=== PATIENT | female | born 1995 | race Caucasian/White ===

== ENCOUNTER 2019-11-18 11:01 | Emergency (ER) | payer OTHER, SELFPAY ==
[2019-11-18 11:04] VITALS: BP 138/95; PULSE 90; RESP 16; TEMP 37.1; O2SAT 96
--- NOTE | 2019-11-18 11:37 | ED.ABDPAIN ---
HPI - Abdominal Pain General Chief Complaint: Eye Problems <Rui Saucedo PA-C - Last Filed: 11/18/19 11:52> Stated Complaint: cat litter in eyes <Rui Saucedo PA-C - Last Filed: 11/18/19 11:52> Time Seen by Provider: 11/18/19 11:04 <Rui Saucedo PA-C - Last Filed: 11/18/19 11:52> Source: patient <GLORY Cano Last Filed: 11/18/19 11:52> Mode of arrival: ambulatory <Rui Saucedo PA-C - Last Filed: 11/18/19 11:52> Limitations: no limitations <Rui Saucedo PA-C - Last Filed: 11/18/19 11:52> History of Present Illness HPI narrative: Patient is a 24-year-old female who presents to emergency department for evaluation of injury to the left eye patient was getting down some cat litter when it fell onto the eyes patient was able to irrigate her eyes out but notes that she continues to have some mild irritation of the left eye denies any visual changes or other complaints and on arrival is otherwise resting comfortably in the room in no distress patient notes that her tetanus was last updated in high school. Patient denies recent illness <Rui Saucedo PA-C - Last Filed: 11/18/19 11:52> Related Data Allergies/Adverse Reactions: Allergies Allergy/AdvReac Type Severity Reaction Status Date / Time No Known Allergies Allergy Verified 11/18/19 11:12 <Rui Saucedo PA-C - Last Filed: 11/18/19 11:52> Review of Systems Review of Systems: All systems reviewed & are unremarkable except as noted in HPI and below <Rui Saucedo PA-C - Last Filed: 11/18/19 11:52> PMFSH Surgical History Surgical History: Surgical History (Updated 11/18/19 @ 11:40 by Rui Saucedo PA-C) H/O blepharoplasty <Rui Saucedo PA-C - Last Filed: 11/18/19 11:52> Social History Social History: Social History (Updated 11/18/19 @ 11:40 by Rui Saucedo PA-C) Smoking status: Current every day smoker <GLORY Cano Last Filed: 11/18/19 11:52> Exam Narrative: Exam Narrative: GENERAL: Well-appearing, well-nourished, and in no acute distress. HEAD: Normocephalic, atraumatic. EYES: PERRLA and EOMI. minimal conjunctival injection of the left eye no foreign bodies noted. Eyelids everted and unremarkable. Negative for fluorescein uptake ENT: Nares clear, no rhinorrhea or epistaxis. Mucous membranes moist. Oropharynx without tonsillar hypertrophy exudate or other lesions. . EXTREMITIES: Normal range of motion. No edema. SKIN: Warm, dry, no rash. NEURO: No focal deficits. Alert and oriented x3. PSYCH: Normal mood and affect. <Rui Saucedo PA-C - Last Filed: 11/18/19 11:52> Course Vital Signs Vital signs: Vital Signs Temperature 37.1 C 11/18/19 11:04 Pulse Rate 90 11/18/19 11:04 Respiratory Rate 16 11/18/19 11:04 Blood Pressure 138/95 H 11/18/19 11:04 Pulse Oximetry 96 11/18/19 11:04 Temperature 37.1 C 11/18/19 11:04 Pulse Rate 90 11/18/19 11:04 Respiratory Rate 16 11/18/19 11:04 Blood Pressure 138/95 H 11/18/19 11:04 Pulse Oximetry 96 11/18/19 11:04 <Rui Saucedo PA-C - Last Filed: 11/18/19 11:52> Vital Signs Temperature 37.1 C 11/18/19 11:04 Pulse Rate 90 11/18/19 11:04 Respiratory Rate 16 11/18/19 11:04 Blood Pressure 138/95 H 11/18/19 11:04 Pulse Oximetry 96 11/18/19 11:04 Temperature 37.1 C 11/18/19 11:04 Pulse Rate 90 11/18/19 11:04 Respiratory Rate 16 11/18/19 11:04 Blood Pressure 138/95 H 11/18/19 11:04 Pulse Oximetry 96 11/18/19 11:04 <Nancy Brown MD - Last Filed: 11/18/19 12:34> MDM - Abdominal Pain MDM Narrative Medical decision making narrative: Patient in the room with no foreign bodies or abrasions seen felt appropriate for outpatient reevaluation provided with reasons to return. <Rui Saucedo PA-C - Last Filed: 11/18/19 11:52> Discharge Plan Discharge Clinical Impression: Foreign b
[2019-11-18] MEDS: TETANUS,DIPHTHERIA,AC PERTUSSIS ADULT (0.5 ML) BOOSTRIX IM (11:46)
[2019-11-18] MEDS: TETRACAINE HCL 0.5% OPHTH SOLN 4 ML BTL 1 DROP (11:48)
[2019-11-18] MEDS: FLUORESCEIN SOD 1 MG/STRIP (11:48)
[2019-11-18] MEDS: DACRIOSE EYE IRRIGATION 118 ML BOTTLE (11:48)
== END 2019-11-18 12:00 | disposition home or self-care (01) ==
PROVIDERS: Emergency Provider Emergency Medicine; PCP Family Medicine
DX: T15.92XA Foreign body on external eye, part unspecified, left eye, initial encounter (principal); Z23 Encounter for immunization; F17.200 Nicotine dependence, unspecified, uncomplicated
CPT/HCPCS: 90471; 90715; 99283; A9270

== ENCOUNTER → 2021-12-27 13:30 | Outpatient (CLI) | payer BC, SELFPAY ==
--- NOTE | ~2021-12-27 | XR_ITS ---
EXAM: XR foot RT min 3V DATE: 12/27/2021 13:44 HISTORY: FOLLOW UP FX 5TH METATARSAL . COMPARISON: None available. FINDINGS: Normal mineralization. Transverse fracture of the proximal right fifth metatarsal extendin g to the intermetatarsal joint. No lytic or blastic lesion. Joint spaces are maintained. No erosion o r periosteal change. Soft tissues within normal limits. IMPRESSION: Nondisplaced transverse fracture of the proximal right fifth metatarsal (Blackburn type fract ure). Reviewed, dictated and finalized at location K. IMPRESSION: Nondisplaced transverse fracture of the proximal right fifth metata rsal (Blackburn type fracture).
== END ==
PROVIDERS: PCP Family Medicine; Visit Provider Podiatrist Foot & Ankle Surgery
DX: S92.351A Displaced fracture of fifth metatarsal bone, right foot, initial encounter for closed fracture (principal); X58.XXXA Exposure to other specified factors, initial encounter
CPT/HCPCS: 73630

== ENCOUNTER → 2022-01-24 14:03 | Outpatient (CLI) | payer BC, SELFPAY ==
--- NOTE | ~2022-01-24 | XR_ITS ---
XR foot RT min 3V DATE: 01/24/2022 14:30 INDICATION: Right metatarsal fracture TECHNIQUE: 3 views COMPARISON: 12/27/2021 right foot FINDINGS: Nondisplaced fracture of the base of the fifth metatarsal bone is again noted, without sign ificant change in position or alignment since 12/27/2021. The fracture line appears mildly less lucent since 12/27/2021, consistent with healing. No other fracture or dislocation or other significant bony abnormality. IMPRESSION: Healing nondisplaced fracture of base of fifth metatarsal bone Reviewed, dictated and finalized at location B.
== END ==
PROVIDERS: PCP Family Medicine; Visit Provider Podiatrist Foot & Ankle Surgery
DX: S92.301D Fracture of unspecified metatarsal bone(s), right foot, subsequent encounter for fracture with routine healing (principal); X58.XXXD Exposure to other specified factors, subsequent encounter
CPT/HCPCS: 73630

== ENCOUNTER → 2022-02-22 13:54 | Outpatient (CLI) | payer BC, SELFPAY ==
--- NOTE | ~2022-02-22 | XR_ITS ---
EXAMINATION: XR foot RT min 3V DATE: 02/22/2022 14:11 INDICATION: Right fifth metatarsal fracture follow-up TECHNIQUE: Dorsoplantar, lateral, and 2 oblique views of the right foot were obtained. COMPARISON: 01/24/2022, 12/27/2021 FINDINGS: There is near complete interval healing of the previously described fracture at the lateral base of the fifth metatarsal. No additional fracture is identified. The joint spaces are normal. The soft tissues are unremarkable. IMPRESSION: 1. Fracture at the lateral base of the fifth metatarsal with routine healing. Reviewed, dictated and finalized at location A.
== END ==
PROVIDERS: PCP Family Medicine; Visit Provider Podiatrist Foot & Ankle Surgery
DX: S92.301A Fracture of unspecified metatarsal bone(s), right foot, initial encounter for closed fracture (principal); X58.XXXA Exposure to other specified factors, initial encounter
CPT/HCPCS: 73630

== ENCOUNTER 2023-05-25 11:47 | Emergency (ER) | payer SELFPAY ==
[2023-05-25 11:57] VITALS: BP 140/76; PULSE 92; RESP 18; TEMP 36.9; O2SAT 98
--- NOTE | 2023-05-25 12:31 | ED.URI ---
HPI - URI/Sore Throat General Chief Complaint: Upper Respiratory Infection Stated Complaint: Cough,Sore Throat Time Seen by Provider: 05/25/23 12:12 Source: patient and RN notes reviewed Mode of arrival: ambulatory Limitations: no limitations History of Present Illness HPI Narrative: Patient presents today with a 3 day history of cough, sore throat, fever, rhinorrhea, and nasal congestion. She has been taking Tylenol and ibuprofen with mild relief. She is currently pain-free, but this increases with swallowing. Related Data Home Medications Medication Instructions Recorded Confirmed paroxetine HCl 20 mg tablet 20 mg PO DAILY 05/25/23 05/25/23 Allergies Allergy/AdvReac Type Severity Reaction Status Date / Time No Known Allergies Allergy Verified 05/25/23 11:56 Review of Systems Review of Systems: CONSTITUTIONAL: Denies body aches, chills, or sweats.+ fever EYES: Denies visual changes, redness, or discharge. ENT: + rhinorrhea, congestion, sore CARDIOVASCULAR: Denies chest pain, palpitations, or edema. RESPIRATORY: Denies dyspnea.+ cough GASTROINTESTINAL: Denies abdominal pain, nausea, vomiting, or diarrhea. GENITOURINARY: Denies dysuria or hematuria. SKIN: Denies rash, itching, or wounds. MUSCULOSKELETAL: Denies back pain, joint pain, or myalgia. NEUROLOGIC: Denies headache, numbness, tingling, or weakness. PSYCH: Denies depression or anxiety. [facility] Surgical History Surgical History H/O blepharoplasty Social History Social History Smoking status: Current every day smoker Comments At time of signature, I have reviewed and agree with nursing past medical, surgical, social and family history unless otherwise noted. Please see nursing chart for further information. There is no relevant family history pertinent to the presenting complaint Exam Narrative: GENERAL: Mildly ill-appearing, well-nourished, and in no acute distress. HEAD: Normocephalic, atraumatic. EYES: EOMI. No redness or drainage. Conjunctivae normal. ENT: Mucous membranes pink and moist. Nares congested with rhinorrhea. TMs normal bilaterally. Throat erythematous with mild edema. Uvula midline. NECK: Normal AROM. Supple. Bilateral tonsillar lymphadenopathy. CHEST: No respiratory distress. Clear to auscultation. HEART: Regular rate and rhythm. No murmur appreciated. EXTREMITIES: Normal range of motion. No edema. SKIN: Warm, dry, no rash. Capillary refill normal. Normal skin turgor. NEURO: No focal deficits. Alert and oriented x3. Gait steady. PSYCH: Normal affect. No signs of depression or anxiety. Course Course Level of Care: Express Care Visit Vital Signs Vital signs: Vital Signs Temperature 98.5 F 05/25/23 11:57 Pulse Rate 92 05/25/23 11:57 Respiratory Rate 18 05/25/23 11:57 Blood Pressure 140/76 05/25/23 11:57 Pulse Oximetry 98 05/25/23 11:57 Oxygen Delivery Room Air 05/25/23 11:57 Temperature 98.5 F 05/25/23 11:57 Pulse Rate 92 05/25/23 11:57 Respiratory Rate 18 05/25/23 11:57 Blood Pressure 140/76 05/25/23 11:57 Pulse Oximetry 98 05/25/23 11:57 Oxygen Delivery Room Air 05/25/23 11:57 Reviewed MDM - URI/Sore Throat MDM Narrative Medical decision making narrative: Rapid strep negative. Culture pending. Declines swabbing for influenza or COVID-19. Discussed [id number] treatment and when to go to the ER. No prescription medications indicated at this time. Anticipatory guidance given. Differential Diagnosis Differential diagnosis: Likely upper respiratory infection, sinusitis, viral infection, pharyngitis and other (Strep throat) Lab Data Attestation: I reviewed the patient's lab results. Labs: Strep Screen Presumptive Negative *(Reference Range: Negative)* Critical
== END 2023-05-25 12:36 | disposition home or self-care (01) ==
PROVIDERS: Emergency Provider Nurse Practitioner; PCP Family Medicine
DX: J06.9 Acute upper respiratory infection, unspecified (principal)
CPT/HCPCS: 87081; 87880; 99213; G0463

== ENCOUNTER 2024-11-14 11:07 | Emergency (ER) | payer OTHER, SELFPAY ==
--- NOTE | ~2024-11-14 | XR_ITS ---
EXAMINATION: XR ankle LT min 3V DATE: 11/14/2024 11:22 INDICATION: Hyperextension injury to the left ankle TECHNIQUE: Anteroposterior, oblique, mortise, and lateral views of the left ankle were obtained. COMPARISON: None. FINDINGS: Alignment is normal. No fracture. Joint spaces are well maintained. No ankle joint effusion. The so ft tissues are unremarkable. IMPRESSION: 1. Negative left ankle radiographs. Reviewed, dictated and finalized at location A.
--- NOTE | 2024-11-14 11:08 | ED_ITS ---
HPI - Extremity Injury (Lower) General Chief Complaint: Extremity Injury, Lower Stated Complaint: ankle injury Time Seen by Provider: 11/14/24 11:14 Source: patient, RN notes reviewed and old records reviewed Mode of arrival: ambulatory Limitations: no limitations History of Present Illness HPI Narrative: 29-year-old female presents to the [facility] with left ankle pain. Patient states that she flexed the ankle while dirt biking. Pain generalized ankle. Mild swelling noted Has taken Tylenol a Motrin Injury occurred yesterday Related Data Home Medications ?Medication ?Instructions ?Recorded ?Confirmed ?Last Taken ?Type bupropion HCl 150 mg 24 hr tablet, mg PO 11/14/24 Unknown History extended release cariprazine 1.5 mg capsule mg 11/14/24 Unknown History (Vraylar) levothyroxine 50 mcg tablet mcg 11/14/24 Unknown History sertraline 50 mg tablet mg 11/14/24 Unknown History Allergies Allergy/AdvReac Type Severity Reaction Status Date / Time No Known Allergies Allergy Verified 11/14/24 11:27 Review of Systems Review of Systems: All systems reviewed & are unremarkable except as noted in HPI and below Constitutional: Constitutional: Reports no additional constitutional complaints ENT: Reports system reviewed and no additional complaints, except as documented Cardiovascular: Cardiovascular: Reports no additional cardiovascular complaints, Denies chest pain and Denies dyspnea Respiratory: Respiratory: Reports no additional respiratory complaints, Denies chest congestion, Denies cough and Denies dyspnea Musculoskeletal: Musculoskeletal: Reports as per HPI, Reports arthralgias and Reports joint swelling Integumentary/Breasts: Skin/Breast: Reports system reviewed and no additional complaints, except as docu PMFSH Surgical History Surgical History H/O blepharoplasty Social History Social History Smoking status: Current every day smoker Comments At the time of my signature, I reviewed and agree with the nursing past medical, surgical, social, and family history. There is no relevant family history pertinent to the patient complaint. Exam Const: General: cooperative, healthy appearing, comfortable, no acute distress, well developed, alert and well nourished Nutritional Appearance: well nourished Orientation/consciousness: patient oriented x3 Limitations: no limitations HENMT: Head: normal to inspection Eyes: General: appearance normal, both eyes and all related structures Alignment and Position: alignment normal Neck: Neck: normal visual inspection, full ROM, no lymphadenopathy and no meningeal signs Chest: Chest palpation & inspection: normal inspection of the chest Resp: Effort & Inspection: normal respiratory effort and able to speak in complete sentences Cardio: Rate: regular rate Skin: General skin exam: normal color and no rashes or lesions noted Neuro: General: patient oriented x3, moves all extremities and no meningeal signs Cognition (Neuro): normal cognition Speech: normal speech Extrem: General: normal to inspection, full ROM, capillary refill normal and normal gait Left lower extremity: ankle Details: tenderness Location: of the lateral malleolus, swelling Details: laterally and anteriorly and normal ROM and foot Details: normal capillary refill, toes with normal ROM, vascular exam Details: dorsalis pedis pulse present and normal capillary refill and motor- sensory exam light-touch normal Psych: Appearance: grossly normal and well kempt Mental Status: mental status grossly normal Speech and movement: Normal speech and movement present and Clear speech present Affect: normal affect Attitude: cooperative Course Course Level of Care: Express Care Visit Vital Signs Vital signs: Vital Signs Temperature 97.4 F L 11/14/24 11:17 Pulse Rate 64 11/14/24 11:17 Respiratory Rate 18 11/14/24 11:17 Blood Pressure 117/66 11/14/24 11:17 Pulse Oximetry 100 11/14/24 11:17 Oxygen Delivery Room Air 11/14/24 11:17 Temperature 97.4 F L 11/14/24 11:17 Pulse Rate 64 11/14/24 11:17 Respiratory Rate 18 11/14/24 11:17 Blood Pressure 117/66 11/14/24 11:17 Pulse Oximetry 100 11/14/24 11:17 Oxygen Delivery Room Air 11/14/24 11:17 Reviewed MDM - Extremity Injury (Lower) MDM Narrative Medical decision making narrative: Patient sitting in exam room. Patient is nontoxic, vitals are stable. X-ray negative for ankle fracture exam most consistent with ankle sprain, strain Patient appropriate for outpatient treatment with close follow-up Discharge instructions reviewed with patient, as well as provided in writing per nursing staff. The instructions also include specific and strict return/GO TO THE ER as well as f/u information. All questions have been answered, and the patient deny any further questions with discharge and discharge plan. Some parts of this dictation were generated by voice recognition software and may contain typographical and/or grammatical inaccuracies. Differential Diagnosis Differential diagnosis: Likely ankle sprain and strain and ankle fracture Imaging Data Radiologist's impression: EXAMINATION: XR ankle LT min 3V DATE: 11/14/2024 11:22 INDICATION: Hyperextension injury to the left ankle TECHNIQUE: Anteroposterior, oblique, mortise, and lateral views of the left ankle were obtained. COMPARISON: None. FINDINGS: Alignment is normal. No fracture. Joint spaces are well maintained. No ankle joint effusion. The soft tissues are unremarkable. IMPRESSION: 1. Negative left ankle radiographs. Critical Care Time Critical Care Time Critical Care Time: No Discharge Plan Discharge Clinical Impression: Left ankle sprain Patient Disposition: Home Condition: Stable Instructions: Ankle Sprain (ED) Additional Instructions: Your Xray did not show a fracture. Wear good supportive shoes at all times. Ice should be applied to help reduce swelling. It can be used for 20 to 30 minutes, every 2-3 hours while awake. Do not apply ice directly to your skin. ankle braces or josie-wraps will help support your injured ankle. You can alternate ibuprofen 600mg and Tylenol 650mg every 4 hours as needed for pain Please schedule a follow-up visit with your personal physician for further evaluation and treatment within 2 weeks especially if symptoms persist. For new or worsening symptoms go directly to the emergency room Patient Language: Swiss Prescriptions: No Action levothyroxine 50 mcg tablet sertraline 50 mg tablet bupropion HCl 150 mg tablet extended release 24 hr PO Vraylar 1.5 mg capsule Follow-up/Referrals: UNKNOWN,DOCTOR [Non-Staff] - Stand Alone Forms: Work/School Release IP Time of Disposition: 11:37
--- OUTSIDE RECORDS SUMMARY | 2024-11-14 11:09 | XMS_ITS | Clinical Summary ---
Author Organization [address] Address [address] [address] Care Team Providers Care Osteopathic Physician Name Role Phone Renae Steiner Primary Care Provider [phone] Allergies No known active allergies Medications hydrOXYzine (VISTARIL) 25 mg capsule Take 1 capsule (25 mg total) by mouth every 6 (six) hours as needed for anxiety Active cariprazine (Vraylar) 1.5 mg capsule capsule Take 1 capsule (1.5 mg total) by mouth daily Active sertraline (ZOLOFT) 100 mg tablet Take 1 tablet (100 mg total) by mouth daily Active levothyroxine (SYNTHROID) 50 mcg tabletIndicatio ns:Hypothyroidi sm, unspecified type TAKE 1 TABLET (50 MCG TOTAL) BY MOUTH SCREEN PRINTING INSPECTOR BEFORE BREAKFAST 30 tablet 11/07/19 25 Active PARoxetine (PAXIL) 40 mg tabletIndicatio ns:Current moderate episode of major depressive disorder without prior episode (HCC) Take 1 tablet (40 mg total) by mouth every morning 90 tablet 3 07/14/19 25 025 Discontinued sertraline (ZOLOFT) 25 mg tablet TAKE 1 TABLET BY MOUTH EVERY DAY FOR 7 DAYS, THEN 2 TABLETS DAILY 09/22/19 25 025 Discontinued levothyroxine (SYNTHROID) 50 mcg tabletIndicatio ns:Hypothyroidi sm, unspecified type Take 1 tablet (50 mcg total) by mouth certified maintenance welder before breakfast 30 tablet 1 10/16/19 25 025 Discontinued Active Problems Problem Noted Date Diagnosed Date Routine adult health maintenance 10/13/2024 Overview (10/13/2024): Health Maintenance: -PCV20: N/A -Tdap vaccine: 2020 -Influenza vaccine: due -Shingles vaccine: N/A -Colonoscopy: N/A -Last WWE: due -Last Mammogram: N/A -Last DEXA: N/A -Last eye exam: N/A -Last MHA: N/A Class 1 obesity due to exces s calories with serious comorbidity and body mass index (BMI) of 34.0 to 34.9 in adult 10/13/2024 Major depressive disorder, single episode, moder ate 09/08/2015 Assessment & Plan (10/14/2024 1:40 PM CDT): Assessment & Plan (09/15/2024 2:11 PM CDT): Assessment & Plan (09/07/2024 9:05 AM CDT): Anxiety Assessment & Plan (10/14/2024 1:40 PM CDT): Assessment & Plan (09/15/2024 2:11 PM CDT): Assessment & Plan (09/07/2024 9:05 AM CDT): Encounters Date Type Department Care Team Description 11/04/2024 2:00 PM CDT Office Visit [facility] [address] [phone] Renae Steiner PA Major depressive disorder, single episode, moderate (HCC) (Primary Dx); Anxiety 10/15/2024 Results Follow-Up [facility] Medicine [address] [phone] Renae Steiner PA Thyroid peroxidase antibody (TPO), Thyroid Function [place], T4, free 10/14/2024 1:30 PM CDT Lab [facility] Lab [address] [place] [id number] Elevated TSH 10/14/2024 1:00 PM CDT Office Visit [address] [phone] Renae Steiner PA Major depressive disorder, single episode, moderate (HCC) (Primary Dx); Anxiety; Elevated TSH 10/02/2024 1:45 PM CDT Telemedicine [address] [phone] Brianna Hendrix NP Rash (Primary Dx) 10/02/2024 Nurse Triage [address] [phone] Jovan Artis MD 09/15/2024 2:00 PM CDT Office Visit [address] [phone] Renae Steiner PA Major depressive disorder, single episode, moderate (HCC) (Primary Dx); Anxiety 09/11/[address] [phone] Jovan Artis MD Appointment Request 09/07/2024 8:30 AM CDT Office Visit [address] [phone] Renae Steiner PA Major depressive disorder, single episode, moderate (HCC) (Primary Dx); Anxiety 09/03/2024 Nurse Triage [address] [phone] Meliza Velazco RN 09/03/[address] [phone] Jovan Artis MD Forms Request 08/25/2024 8:45 AM JET HANDLER Office Visit [address] [phone] Jovan Artis MD Major depressive disorder, single episode, moderate (HCC) (Primary Dx); Class 1 obesity due to excess calories without serious comorbidity with body mass index (BMI) of 34.0 to 34.9 in adult 08/24/2024 Nurse Triage [facility] [address] [phone] Jovan Artis MD from Last 3 Months Immunizations Immunization Administration Dates Next Due DTaP 06/01/2003, 1,01/20/2001,12/20/2000,0 07/26/1998 Hep A, Pediatric 07/13/2004,06/01/2003 Hep B, Adolescent or Pediatric 06/01/2003,2000,07/26/1998 IPV 04/07/2001,01/20/2001,07/26/1998 Influenza, Unspecified 05/26/2024(Deferr ed: Patient Refused),06/05/2023(Deferred: Patient Refused),06/05/2022(Deferred: Patient Refused),03/24/2021(Deferred: Patient Refused),03/24/2020(Deferred: Patient Refused) MMR 01/20/2001,07/26/1998 Tdap 11/18/2019,01/17/2006 Varicella 01/20/2001 Surgical History Surgery Date Site/Laterality Comments EYE SURGERY Medical History Medical History Date Comments Anxiety Depression Family History Medical History Relation Name Comments ADD / ADHD Brother 1 Depression Brother 1 No Known Problems Father Diabetes Maternal Grandfather Breast cancer Maternal Grandmother Parkinsonism Maternal Grandmother brain tumor Mother Cancer Paternal Grandfather No Known Problems Paternal Grandmother Relation Name Status Comments Brother 1 Alive Brother 2 Alive Brother 3 Alive Father Alive Maternal Grandfather Alive Maternal Grandmother Mother Alive Paternal Grandfather Paternal Grandmother Social History Tobacco Use Types Packs/Day Years Used Date Smoking Tobacco: Former Cigarettes Smokeless Tobacco: Never Tobacco Cessation:Counseling Given: Not Answered Alcohol Use Standard Drinks/Week Comments Not Currently 0 (1 standard drink = 0.6 oz pur e alcohol) AUDIT-C Answer Date Recorded Q1: How often do you have a drink containing alcohol? Never 07/14/2024 Q2: How many drinks containi ng alcohol do you have on a typical day when you are drinking? Patient does not drink Q3: How often do you have si x or more drinks on one occasion? Never 07/14/2024 PHQ-2 Answer Date Recorded PHQ-2 Total Score (If total score is 3 or more points, staff should administer the PHQ-9) 2 11/04/2024 PHQ-9 Answer Date Recorded PHQ-9 Total Score 7 11/04/2024 Comments No Sex and Gender Information Value Date Recorded Sex Assigned at Not on file Legal Sex Female 7:10 AM JET HANDLER Gender Identity Female 05/28/2023 12:38 PM JET HANDLER Sexual Orientation Straight 05/28/2023 12 :38 PM JET HANDLER Obstetrics History Last Filed Vital Signs Vital Sign Reading Time Taken Comments Blood Pressure 118/80 11/04/2024 1:57 PM CDT Pulse 88 11/04/2024 1:57 PM CDT Temperature 36.1 C (96.9 F) 11/04/2024 1:57 PM CDT Respiratory Rate 18 11/04/2024 1:57 PM CDT Oxygen Saturation 97% 11/04/2024 1:57 PM CDT Inhaled Oxygen Concentration - - Weight 106.1 kg (234 lb) 11/04/2024 1:57 PM CDT Height 170.2 cm (5' 7 ) 11/04/2024 1:57 PM CDT Body Mass Index 36.65 11/04/2024 1:57 PM CDT Plan of Treatment Health Maintenance Due Date Last Done Comments Varicella Vaccines (2 of 2 - 2-dose childhood series) 04/14/2001 01/20/2001 Cervical Cancer Screening 04/25/2020 04/25/2019 Influenza Vaccine (Season Ended) 2025 Regular Well Visit/Exam 18-64 07/14/2025 07/14/2024, 07/14/2024, 08/30/2020, Additional history exists Depression Screening 11/04/2025 11/04/2024, 11/04/2024, 09/15/2024, Additional history exists DTaP/Tdap/Td Vaccine (7 - Td or Tdap) 11/17/2029 11/18/2019, 01/17/2006, 06/01/2003, Additional history exists Hepatitis B Screening Completed 06/01/2003 , 04/07/2001, 07/26/1998 Hepatitis C Screening Completed 06/19/2016 HPV Vaccines Discontinued Pneumococcal vaccine <65 Aged Out No longer eligible based on patient's age to complete this topic Procedures Procedure Name Priority Date/Time Associated Diagnosis Comments T4, FREE Routine 10/14/2024 1:33 PM CDT Elevated TSH THYROID FUNCTION CASCADE Routine 10/14/2024 1:33 PM CDT Elevated TSH THYROID PEROXIDASE ANTIBODY Routine 10/14/2024 1:33 PM CDT Elevated TSH HM PAP SMEAR Routine 04/25/2019 HEPATITIS PANEL, ACUTE Routine 06/19/2016 9:00 AM JET HANDLER from Last 3 Months or Most Recently Relevant to Health Maintenance Results * (ABNORMAL) Thyroid Function [place] (10/14/2024 1:33 PM CDT) TSH 14.82(H) 0.30 - 4.20 mcIUnit/mL Comment:Testing performed by : [facility], [address] [place] [address]., [address] Blood 10/14/2024 1:33 PM CDT 10/14/2024 6:27 PM CDT us Renae BALDWIN LAB BLOOD ORDERABLES Annalisa l Result RADHA [address] [facility] [place] [address] * (ABNORMAL) Thyroid peroxidase antibody (TPO) (10/14/2024 1:33 PM CDT) Anti Thyroid Peroxidase 141(H) <=34 IUnits/mL Comment: ATPO Interpretive Data Results may be up to 28% higher in patients receiving Itraconazole. Current interpretive data was last revised 2020. Testing performed by: [facility], [address] [place]., [address] Blood 10/14/2024 1:33 PM CDT 10/15/2024 12:12 AM CDT Renae BALDWIN LAB BLOOD ORDERABLES Annalisa l Result MARY[address] [place] [address] * (ABNORMAL) T4, free (10/14/2024 1:33 PM CDT) Pathologist [facility] Free T4 0.82(L) 0.90 - 1.70 ng/dL Comment:Testing performed by : [facility], [address] [place] [address]., [address] Blood 10/14/2024 1:33 PM CDT 10/14/2024 6:27 PM CDT Narrative RADHA - 10/14/2024 8:43 PM CDT This test was reflexed from a TSH result. Renae BALDWIN LAB BLOOD ORDERABLES Annalisa l Result Performing Organization Address City/[facility] Co de Phone Number MARY[address] [place] [address] * HM PAP SMEAR (04/25/2019) Pathologist [facility] Pap smear Normal Historical Provider HEALTH MAINTENANCE Final Result * Hepatitis panel, acute (06/19/2016 9:00 AM JET HANDLER) Pathologist [facility] HepBsAg NONREACT NONREACTIVE 06/19/2016 2:18 PM JET HANDLER [facility] HISTORICAL RESULTS Comment: Siemens Cool LumensaurXP using JANICE (chemiluminescent immunoassay) technology. NONREACTIVE: IgM antibodies to Hepatitis B Surface antigen not detected. REACTIVE: IgM antibodies to Hepatitis B Surface antigen detected. Reactive results will be confirmed by neutralization testing. HBsAb qn > 850.00 mIU/mL 06/19/2016 2:09 PM JET HANDLER [facility] [employer] HISTORICAL RESULTS Comment: Siemens CentaurXP using JANICE (chemiluminescent immunoassay) technology. 9.99 IU/L or less.....NONREACTIVE: IgM antibodies to Hepatitis B Surface antibody are not detected. 10.00 IU/L or greater..REACTIVE: IgM antibodies to Hepatitis B Surface antibody are detected. Hep B core IgM NONREACT NONREACTIVE 6 2:45 PM JET HANDLER [facility] HISTORICAL RESULTS Comment: Siemens CentaurXP using JANICE (chemiluminescent immunoassay) technology. NONREACTIVE: IgM antibodies to Hepatitis B Core antigen not detected. EQUIVOCAL: IgM antibodies to Hepatitis B Core antigen may or may not be present. Obtain a new specimen and retest. REACTIVE: IgM antibodies to Hepatitis B Core antigen detected. Hep A IgM NONREACT NONREACTIVE 06/19/2016 2:47 PM JET HANDLER [facility] HISTORICAL RESULTS Comment: Siemens CentaurXP using JANICE (chemiluminescent immunoassay) technology. NONREACTIVE: IgM antibodies to Hepatitis A not detected. This does not exclude possibility of exposure to Hepatitis A or early acute infection. EQUIVOCAL:IgM antibodies to Hepatitis A may or may not be present. Suggest recollection and retest. REACTIVE: Antibodies to Hepatitis A detected. Hep C Ab NONREACT NONREACTIVE 06/19/2016 2:45 PM JET HANDLER [facility] HISTORICAL RESULTS Comment: Siemens CentaurXP using JANICE (chemiluminescent immunoassay) technology. NONREACTIVE: Antibodies to Hepatitis C not detected. This does not exclude early acute Hepatitis C infection, possibility of exposure to Hepatitis C, antibodies below detection limit, or to lack of antibody reactivity to the antigen used in this assay. EQUIVOCAL: Antibodies to Hepatitis C may or may not be present. Sample to be confirmed by real-time PCR method. REACTIVE: Antibodies to Hepatitis C detected. 06/19/2016 9:00 AM JET HANDLER 06/19/2016 9:11 AM JET HANDLER us Nancy BALDWIN LAB MICROBIOLOGY - GENER AL ORDERABLES Final Result [facility] HISTORICAL RESULTS from Last 3 Months or Most Recently Relevant to Health Maintenance Insurance LOCAL PLUS Care Teams Osteopathic Physician Relationship Specialty Start Date End Date Renae Steiner PA [address] [place] [address] PCP - General Family Medicine 10/14/24
--- OUTSIDE RECORDS SUMMARY | 2024-11-14 11:09 | XMS_ITS | Encounter Summary ---
Author Organization [facility] Healthcare Address [address] [place] [address] Care Team Providers Care Orchid Transplanter Name Role Phone Jovan Artis MD Primary Care Provid er Jovan Artis MD Primary Care Provid er Renae Steiner Primary Care Provider + -[phone] Reason for Visit * Reason Onset Date Comments Depression 08/24/2024 Encounter Details Date Type Department Care Team (Late st Contact Info) Description 08/24/2024 Nurse Triage [facility] Family Medicine [address] [phone] Jovan Artis MD [address] [place] [phone] Social History Tobacco Use Types Packs/Day Years Used Date Smoking Tobacco: Former Cigarettes Smokeless Tobacco: Never Alcohol Use Standard Drinks/Week Comments Not Currently [...] PHQ-2 Answer Date Recorded PHQ-2 Total Score 2 07/14/2024 PHQ-9 Answer Date Recorded PHQ-9 Total Score 10 07/14/2024 Comments No Sex and Gender Information Value Date Recorded Sex Assigned at Not on file Legal Sex Female 7:10 AM HR SHARED SERVICES CONSULTANT Gender Identity Female 05/28/2023 12:38 PM HR SHARED SERVICES CONSULTANT Sexual Orientation Straight 05/28/2023 12 :38 PM HR SHARED SERVICES CONSULTANT documented as of this encounter Miscellaneous Notes * Telephone Encounter - Mable Harper LPN - 08/25/2024 2:08 PM CST Pt seen in office today. SHARED SERVICES CONSULTANT * Telephone Encounter - Mable Harper LPN - 08/24/2024 3:08 PM CST Call placed to ask patient more questions regarding thoughts of self harm, no answer, lmtc. Messagerelayed to pcp, more details needed and if she does have a plan to proceed to the ER, otherwise he will see her in office tomorrow. SHARED SERVICES CONSULTANT SHARED SERVICES CONSULTANT * Telephone Encounter - Marleny Cuellar RN - 08/24/2024 12:18 PM CST Patient called stating PCP changed her medication and has had thoughts of harming herself for the past 3 weeks after dose of her Paxil was increased. Denies plan of harming herself. States dose was increased due to her depression worsening and it is not helping. States she thinks about harming herself but is at work and no plan. Currently states she feels exhausted and sad and useless. Feels likeshe has a weight on her chest. No appt available in the office today. Appt scheduled tomorrow with Dr. Artis. Care Advice Given: Talk to support person, do an activity to relax Educated patient to call back if worsens, new symptoms develop or has further questions/concerns. Reason for Disposition Sometimes has thoughts of suicide Protocols used: [id number] SHARED SERVICES CONSULTANT documented in this encounter Plan of Treatment Not on file documented as of this encounter Visit Diagnoses Not on filedocumented in this encounter Care Teams Orchid Transplanter Relationship Specialty Start Date End Date Jovan Artis MD [address] [place] [address] PCP - General Family Medicine 05/26/19 09/06/24 Jovan Artis MD [address] [place] [address] PCP - General Family Medicine 09/14/24 10/13/24 Renae Steiner PA [address] [place] [address] PCP - General Family Medicine 10/14/24 documented as of this encounter
--- OUTSIDE RECORDS SUMMARY | 2024-11-14 11:09 | XMS_ITS | Referral Summary ---
Author Organization [address] Address [address] [place] [phone] Care Team Providers Care Import Customs Clearing Agent Name Role Phone Renae Steiner Primary Care Provider [phone] Encounters Date Type Department Care Team Description 11/04/2024 2:00 PM CDT Office Visit [address] [phone] Renae Steiner PA Major depressive disorder, single episode, moderate (HCC) (Primary Dx); Anxiety 10/15/2024 Results Follow-Up [address] [phone] Renae Steiner PA Thyroid peroxidase antibody (TPO), Thyroid Function [place], T4, free 10/14/2024 1:30 PM CDT Lab [facility] OP Lab [address] [place] [address] Elevated TSH 10/14/2024 1:00 PM CDT Office Visit [address] [phone] Renae Steiner PA Major depressive disorder, single episode, moderate (HCC) (Primary Dx); Anxiety; Elevated TSH 10/02/2024 1:45 PM CDT Telemedicine [address] [phone] Brianna Hendrix NP Rash (Primary Dx) 10/02/2024 Nurse Triage [address] [phone] Jovan Artis MD 09/15/2024 2:00 PM CDT Office Visit [address] [phone] Renae Steiner PA Major depressive disorder, single episode, moderate (HCC) (Primary Dx); Anxiety 09/11/[address] [phone] Jovan Artis MD Appointment Request 09/07/2024 8:30 AM CDT Office Visit [address] [phone] Renae Steiner PA Major depressive disorder, single episode, moderate (HCC) (Primary Dx); Anxiety 09/03/2024 Nurse Triage [address] [phone] Meliza Velazco RN 09/03/[address] [phone] Jovna Artis MD Forms Request 08/25/2024 8:45 AM STRINGER UP SOLDERING MACHINE Office Visit [address] [phone] Jovan Artis MD Major depressive disorder, single episode, moderate (HCC) (Primary Dx); Class 1 obesity due to excess calories without serious comorbidity with body mass index (BMI) of 34.0 to 34.9 in adult 08/24/2024 Nurse Triage [address] [phone] Jovan Artis MD from Last 3 Months Allergies No known active allergies Medications hydrOXYzine [...] 1 TABLET (50 MCG TOTAL) BY MOUTH ONLINE MERCHANDISING MANAGER BEFORE BREAKFAST 30 tablet 11/07/19 25 Active [...] 1 tablet (50 mcg total) by mouth freelance writer before breakfast 30 tablet 1 10/16/19 25 [...] Assessment & Plan (09/07/2024 9:05 AM CDT): Immunizations Immunization Administration Dates Next Due DTaP 06/01/2003, 1,01/20/2001,12/20/2000,0 07/26/1998 Hep A, Pediatric 07/13/2004,06/01/2003 Hep B, Adolescent or Pediatric 06/01/2003,2000,07/26/1998 IPV 04/07/2001,01/20/2001,07/26/1998 Influenza, Unspecified 05/26/2024(Deferr ed: Patient Refused),06/05/2023(Deferred: Patient Refused),06/05/2022(Deferred: Patient Refused),03/24/2021(Deferred: Patient Refused),03/24/2020(Deferred: Patient Refused) MMR 01/20/2001,07/26/1998 Tdap 11/18/2019,01/17/2006 Varicella 01/20/2001 Social History Tobacco Use Types Packs/Day Years [...] on file Legal Sex Female 7:10 AM STRINGER UP SOLDERING MACHINE Gender Identity Female 05/28/2023 12:38 PM STRINGER UP SOLDERING MACHINE Sexual Orientation Straight 05/28/2023 12 :38 PM STRINGER UP SOLDERING MACHINE Last Filed Vital Signs Vital Sign Reading [...] 11/04/2024 1:57 PM CDT Plan of Treatment Not on file Procedures Procedure Name Priority Date/Time Associated Diagnosis Comments T4, FREE Routine 10/14/2024 1:33 PM CDT Elevated TSH THYROID FUNCTION CASCADE Routine 10/14/2024 1:33 PM CDT Elevated TSH THYROID PEROXIDASE ANTIBODY Routine 10/14/2024 1:33 PM CDT Elevated TSH HM PAP SMEAR Routine 04/25/2019 HEPATITIS PANEL, ACUTE Routine 06/19/2016 9:00 AM STRINGER UP SOLDERING MACHINE from Last 3 Months or Most Recently Relevant to Health Maintenance Results * (ABNORMAL) Thyroid Function [place] (10/14/2024 1:33 PM CDT) TSH 14.82(H) 0.30 - 4.20 mcIUnit/mL Comment:Testing performed by : [facility], [address] [place] [address]., [address] Blood 10/14/2024 1:33 PM CDT 10/14/2024 6:27 PM CDT Result [facility] Renae BALDWIN LAB BLOOD ORDERABLES Annalisa l Result Performing Organization Address City/[facility]/ZIP Co de Phone Number [address] [address] * (ABNORMAL) Thyroid peroxidase antibody (TPO) (10/14/2024 1:33 PM CDT) Anti Thyroid Peroxidase 141(H) <=34 IUnits/mL Comment: ATPO Interpretive Data Results may be up to 28% higher in patients receiving Itraconazole. Current interpretive data was last revised 2020. Testing performed by: [facility], [address] [place]., [address] Blood 10/14/2024 1:33 PM CDT 10/15/2024 12:12 AM CDT Result [facility] Renae BALDWIN LAB BLOOD ORDERABLES Annalisa l Result Performing Organization Address [facility] Co de Phone Number [address] [address] * (ABNORMAL) T4, free (10/14/2024 1:33 PM CDT) Free T4 0.82(L) 0.90 - 1.70 ng/dL Comment:Testing performed by : [facility], [address] [place] [address]., [address] Blood 10/14/2024 1:33 PM CDT 10/14/2024 6:27 PM CDT Narrative RADHA - 10/14/2024 8:43 PM CDT This test was reflexed from a TSH result. Renae BALDWIN LAB BLOOD ORDERABLES Annalisa l Result RADHA [address] [facility] Department [place] [address] * PAP SMEAR (04/25/2019) Pap smear Normal us Historical Provider HEALTH MAINTENANCE Final Result * Hepatitis panel, acute (06/19/2016 9:00 AM STRINGER UP SOLDERING MACHINE) Pathologist [facility] HepBsAg NONREACT NONREACTIVE 06/19/2016 2:18 PM STRINGER UP SOLDERING MACHINE [place] HISTORICAL RESULTS Comment: Siemens CentaurXP using JANICE (chemiluminescent immunoassay) technology. NONREACTIVE: IgM antibodies to Hepatitis B Surface antigen not detected. REACTIVE: IgM antibodies to Hepatitis B Surface antigen detected. Reactive results will be confirmed by neutralization testing. HBsAb qn > 850.00 mIU/mL 06/19/2016 2:09 PM STRINGER UP SOLDERING MACHINE [place] HISTORICAL RESULTS Comment: Siemens CentaurXP using JANICE (chemiluminescent immunoassay) technology. 9.99 IU/L or less.....NONREACTIVE: IgM antibodies to Hepatitis B Surface antibody are not detected. 10.00 IU/L or greater..REACTIVE: IgM antibodies to Hepatitis B Surface antibody are detected. Hep B core IgM NONREACT NONREACTIVE 6 2:45 PM STRINGER UP SOLDERING MACHINE [place] HISTORICAL RESULTS Comment: Siemens CentaurXP using JANICE (chemiluminescent immunoassay) technology. NONREACTIVE: IgM antibodies to Hepatitis B Core antigen not detected. EQUIVOCAL: IgM antibodies to Hepatitis B Core antigen may or may not be present. Obtain a new specimen and retest. REACTIVE: IgM antibodies to Hepatitis B Core antigen detected. Hep A IgM NONREACT NONREACTIVE 06/19/2016 2:47 PM STRINGER UP SOLDERING MACHINE [place] HISTORICAL RESULTS Comment: Siemens CentaurXP using JANICE (chemiluminescent immunoassay) technology. NONREACTIVE: IgM antibodies to Hepatitis A not detected. This does not exclude possibility of exposure to Hepatitis A or early acute infection. EQUIVOCAL:IgM antibodies to Hepatitis A may or may not be present. Suggest recollection and retest. REACTIVE: Antibodies to Hepatitis A detected. Hep C Ab NONREACT NONREACTIVE 06/19/2016 2:45 PM STRINGER UP SOLDERING MACHINE [place] HISTORICAL RESULTS Comment: Siemens CentaurXP using JANICE [...] to Hepatitis C detected. 06/19/2016 9:00 AM STRINGER UP SOLDERING MACHINE 06/19/2016 9:11 AM STRINGER UP SOLDERING MACHINE us Nancy BALDWIN LAB MICROBIOLOGY - GENER AL ORDERABLES Final Result [facility] HISTORICAL RESULTS from Last 3 Months or Most Recently Relevant to Health Maintenance Insurance LOCAL PLUS Care Teams Import Customs Clearing Agent Relationship Specialty Start Date End Date Renae Steiner PA [address] [place] [address] PCP - General Family Medicine 10/14/24
--- OUTSIDE RECORDS SUMMARY | 2024-11-14 11:09 | XMS_ITS | Encounter Summary ---
Author Organization [facility] Healthcare Address [address] [place] [address] Care Team Providers Care Unhairer Name Role Phone Renae Steiner Primary Care Provider [phone] Encounter Details Date Type Department Care Team (Late st Contact Info) Description 10/15/2024 Results Follow-Up [facility] Family Medicine [address] [id number] Renae Steiner PA [address] [address] Thyroid peroxidase antibody (TPO), Thyroid Function Vermilion, T4, free Social History Tobacco Use Types Packs/Day Years [...] more points, staff should administer the PHQ-9) 1 09/15/2024 PHQ-9 Answer Date Recorded PHQ-9 Total Score 4 09/15/2024 Comments No Sex and Gender Information Value Date Recorded Sex Assigned at Not on file Legal Sex Female 7:10 AM SPEECH LANGUAGE ASSISTANT Gender Identity Female 05/28/2023 12:38 PM SPEECH LANGUAGE ASSISTANT Sexual Orientation Straight 05/28/2023 12 :38 PM SPEECH LANGUAGE ASSISTANT documented as of this encounter Ordered Prescriptions Prescription Sig Dispense Quantity Refills Last Filled Start Date End Date levothyroxine (SYNTHROID) 50 mcg tabletIndications: Hypothyroidism, unspecified type Take 1 tablet (50 mcg total) by mouth teacher early childhood development before breakfast 30 tablet 1 10/15/2024 documented in this encounter Plan of Treatment Scheduled Orders Name Type Priority Associated Diagnoses Orde r Schedule Thyroid Function Vermilion Lab Routine Hypothyroidism, unspecified type Expected: 10/18/2024, Expires: 10/15/2025 documented as of this encounter Visit Diagnoses Diagnosis Hypothyroidism, unspecified type- Primary documented in this encounter Care Teams Unhairer Relationship Specialty Start Date End Date Renae Steiner PA [address] [place] [address] PCP - General Family Medicine 10/14/24 documented as of this encounter
[2024-11-14 11:17] VITALS: BP 117/66; PULSE 64; RESP 18; TEMP 36.3; O2SAT 100
== END 2024-11-14 11:40 | disposition home or self-care (01) ==
PROVIDERS: Emergency Provider Nurse Practitioner
DX: S93.402A Sprain of unspecified ligament of left ankle, initial encounter (principal); X50.9XXA Other and unspecified overexertion or strenuous movements or postures, initial encounter; Y93.I9 Activity, other involving external motion; F17.200 Nicotine dependence, unspecified, uncomplicated
CPT/HCPCS: 73610; 99213; G0463